=== PATIENT | female | born 1970 | race Caucasian/White ===

== ENCOUNTER 2020-03-27 14:56 | Outpatient (REF) | payer MEDICAID, SELFPAY ==
[2020-03-27 18:36] LABS: HCT 42.4 % (36.0-46.0); HGB 13.9 g/dL (11.2-15.7); MCH 29.4 pg (27.0-33.0); MCHC 32.8 % (32.0-36.0); MCV 89.8 fL (80-95); MPV 10.5 fL (8.0-11.0); Platelet Count 313 10^3/uL (130-400); RBC 4.72 10^6/uL (3.93-5.22); RDW 12.3 % (11.7-14.6); RDW-SD 40.7 fL; WBC 8.05 10^3/uL (4.4-10.8)
[2020-03-27 19:39] LABS: Hemoglobin A1C 5.4 % (<5.7)
[2020-03-27 19:42] LABS: ALT 28 U/L (14-59); AST 23 U/L (15-37); Albumin 4.1 g/dL (3.4-5.0); Alkaline Phosphatase 82 U/L (46-116); BUN 21 mg/dL (7-18); Bilirubin, Total 0.6 mg/dL (0.2-1.0); CREATININE 1.11 mg/dL (0.55-1.02); Calcium 9.1 mg/dL (8.5-10.1); Calculated LDL 108 mg/dL (<100); Chloride 105 mmol/L (98-107); Cholesterol 211 mg/dL (<200); Estimated GFR 52.03 (mL/min/1.73m2); Ferritin 82 ng/mL (8-252); Glucose 100 mg/dL (74-106); HDL Cholesterol 43 mg/dL (40-60); Potassium 3.8 mmol/L (3.5-5.1); Sodium 141 mmol/L (136-145); T4 8.5 ug/mL (4.7-13.3); Total Protein 7.1 g/dL (6.4-8.2); Triglyceride 302 mg/dL (<150)
[2020-03-27 20:15] LABS: C-Reactive Protein 0.18 mg/dL (0.0-0.3); FREE T4 1.03 ng/dL (0.76-1.46)
[2020-03-29 04:48] LABS: Vitamin D 25 Total 31.6 ng/ml (30-100)
[2020-03-30 09:40] LABS: CEA 1.5 ng/ml
[2020-03-30 09:42] LABS: HIV-1/2 Ag & Ab Screen Negative (Negative)
[2020-04-11 16:01] LABS: T3, Total 90 ng/dL (80 - 200); Testosterone, Total 12 ng/dL (8-60)
[2020-04-11 16:07] LABS: Hepatitis C Ab w Rflx HCV PCR Negative (Negative)
[2020-04-11 16:11] LABS: DHEA Sulfate 97 mcg/dL
[2020-04-11 16:12] LABS: Estradiol 47 pg/mL
[2020-04-11 16:13] LABS: Progesterone 0.29 ng/mL; T3,Free 2.9 pg/mL
== END 2020-03-27 15:16 ==
LOC: NCHCN 14:56
PROVIDERS: PCP Nurse Practitioner Family; Visit Provider Nurse Practitioner Family
DX: E61.1 Iron deficiency (principal); G25.81 Restless legs syndrome; R53.83 Other fatigue; R63.5 Abnormal weight gain; N95.1 Menopausal and female climacteric states; Z11.4 Encounter for screening for human immunodeficiency virus [HIV]; Z11.59 Encounter for screening for other viral diseases
CPT/HCPCS: 80053; 80061; 82306; 82627; 84402; 84403; 85027; 86803; 87389; 82378; 82670; 82728; 83036; 83735; 84144; 84436; 84439; 84443; 84480; 84481; 86140

== ENCOUNTER 2020-05-25 04:31 | Outpatient (CLI) | payer MEDICAID, SELFPAY ==
--- NOTE | 2020-05-25 | DI.MAMMO_ITS ---
EXAM: MG MAMMO SCREENING CLINICAL HISTORY: SCREENING,Z12.39. TECHNIQUE: Bilateral full field digital CC and MLO mammographic images were obtained with 3D tomosyn thesis and utilizing computer aided detection (CAD). COMPARISON: Prior mammograms dating back to 2010, the most recent being April 2017. FINDINGS: There are no CAD designations. Asymmetric density posteriorly in the right breast is unchanged from 2011 and therefore benign. Ther e are no new spiculated masses nor malignant-appearing microcalcifications in either breast There is no new architectural distortion or skin thickening-traction. IMPRESSION: No radiographic evidence of malignancy. BI-RADS Category 1 - Negative Breast Density - Category B - Scattered areas of fibroglandular density Breast density Category C or D implies that the patient has dense breast tissue. Dense breast tissue can make it harder to find cancer on a mammogram. Dense breast tissue is also associated with an incr eased risk of breast cancer. This information about the result of the mammogram report was provided to the patient to raise their awareness. Use this report when you speak with the patient about their risks for breast cancer, which includes their family history. At that time, you may recommend additional screening tests (Ultrasoun d or MRI) as these tests may add significant information. A negative radiographic report should not delay biopsy if a dominant or clinically suspicious mass is present. Up to ten percent of cancers are not identified on mammography. A negative report may reinforce clinical impression. Adenosis and dense breasts may obscure an underlying neoplasm. False positive reports average 6 to 10%. Patient will receive a letter notifying them of these results.
== END 2020-05-25 04:51 ==
PROVIDERS: PCP Nurse Practitioner Family; Visit Provider Nurse Practitioner Family
DX: Z12.31 Encounter for screening mammogram for malignant neoplasm of breast (principal); N64.89 Other specified disorders of breast
CPT/HCPCS: 77063; 77067

== ENCOUNTER 2020-06-18 21:37 | Day surgery (SDC) | payer MEDICAID, SELFPAY | END 2020-06-18 21:38 | disposition home or self-care (01) | LOC: SUR 21:39 | PROVIDERS: PCP Nurse Practitioner Family; Visit Provider Surgery | DX: Z53.9 Procedure and treatment not carried out, unspecified reason (principal) ==

== ENCOUNTER 2021-08-02 14:44 | Outpatient (REF) | payer MEDICAID, SELFPAY ==
[2021-08-02 19:46] LABS: HCT 42.8 % (36.0-46.0); HGB 13.7 g/dL (11.2-15.7); MCH 29.3 pg (27.0-33.0); MCV 91.6 fL (80-95); MPV 10.3 fL (8.0-11.0); Platelet Count 322 10^3/uL (130-400); RBC 4.67 10^6/uL (3.93-5.22); RDW 12.7 % (11.7-14.6); RDW-SD 42.7 fL; WBC 8.31 10^3/uL (4.4-10.8)
[2021-08-02 20:06] LABS: Iron 113 ug/dL (50-170)
[2021-08-02 20:11] LABS: Hemoglobin A1C 5.5 % (<5.7)
[2021-08-02 20:17] LABS: ALT 27 U/L (14-59); AST 16 U/L (15-37); Alkaline Phosphatase 84 U/L (46-116); Anion Gap 11.3 mmol/L (3-11); BUN 22 mg/dL (7-18); Bilirubin, Total 0.7 mg/dL (0.2-1.0); CO2 24.7 mmol/L (21.0-32.0); CREATININE 0.9 mg/dL (0.55-1.02); Calcium 8.9 mg/dL (8.5-10.1); Calculated LDL 144 mg/dL (<100); Chloride 106 mmol/L (98-107); Cholesterol 234 mg/dL (<200); Glucose 91 mg/dL (74-106); HDL Cholesterol 54 mg/dL (40-60); Sodium 142 mmol/L (136-145); TSH 1.05 uIU/mL (0.36-3.74); Total Protein 6.8 g/dL (6.4-8.2); Triglyceride 182 mg/dL (<150)
[2021-08-02 20:39] LABS: C-Reactive Protein < 0.05 mg/dL (0.0-0.3); FREE T4 0.91 ng/dL (0.76-1.46)
[2021-08-02 21:12] LABS: ESR 8 mm/hr (0-30)
[2021-08-03 22:41] LABS: T3, Total 115 ng/dL (97-169)
[2021-08-03 23:44] LABS: Estradiol <12 pg/mL (See Note)
[2021-08-05 05:28] LABS: Vitamin D 25 Total 60.8 ng/mL (30-100)
[2021-08-05 09:57] LABS: FSH 61.7 mIU/mL (See Note); LH 27.4 mIU/mL (See Note)
[2021-08-05 10:06] LABS: Sex Hormone Binding Globulin 46.6 nmol/L (See Note)
[2021-08-05 10:11] LABS: Prolactin 6.3 ng/mL (See Table)
[2021-08-09 12:02] LABS: Testosterone, Total <7.0 ng/dL (8-60)
== END 2021-08-02 14:45 | disposition home or self-care (01) ==
LOC: NCHCN 14:44
PROVIDERS: PCP Nurse Practitioner Family; Visit Provider Nurse Practitioner Family
DX: N95.9 Unspecified menopausal and perimenopausal disorder (principal); R53.83 Other fatigue; E61.1 Iron deficiency; G25.81 Restless legs syndrome
CPT/HCPCS: 80053; 80061; 82306; 84402; 84403; 85027; 85652; 82670; 83001; 83002; 83036; 83540; 83735; 84146; 84270; 84439; 84443; 84480; 84481; 86140

== ENCOUNTER → 2021-09-02 02:36 | Outpatient (CLI) | payer MEDICAID, SELFPAY | PROVIDERS: PCP Nurse Practitioner Family; Visit Provider Nurse Practitioner Family ==

== ENCOUNTER 2021-09-13 22:51 | Outpatient (REF) | payer MEDICAID, SELFPAY ==
[2021-09-16 11:27] LABS: Thyroperoxidase Antibody 32 U/mL (<=60)
[2021-09-16 11:47] LABS: Insulin 5.2 uIU/mL (<29.0)
== END 2021-09-13 22:52 | disposition home or self-care (01) ==
LOC: NCHCN 22:51
PROVIDERS: PCP Nurse Practitioner Family; Visit Provider Nurse Practitioner Family
DX: R53.83 Other fatigue (principal); E66.8 Other obesity; Z68.37 Body mass index [BMI] 37.0-37.9, adult; N95.1 Menopausal and female climacteric states
CPT/HCPCS: 82533; 83525; 86376

== ENCOUNTER → 2021-12-30 02:48 | Outpatient (CLI) | payer MEDICAID, SELFPAY ==
--- NOTE | 2021-12-30 08:45 | DI.MAMMO_ITS ---
Exam(s) MAMMO SCREENING EXAM: MAMMO SCREENING CLINICAL HISTORY: SCREENING, Z12.39 TECHNIQUE: Bilateral full field digital CC and MLO mammographic images were obtained with 3D tomosyn thesis and utilizing computer aided detection (CAD). COMPARISON: Available for comparison. FINDINGS: Masses/Architectural Distortion: None seen. Microcalcifications: There is a new cluster of microcalcifications in the upper-outer quadrant of the right breast. Spot magnification views are recommended for further evaluation. There are 2 small c alcifications which are new in the retroareolar region of the left breast. Spot magnification views may be obtained of this collection also. Skin Thickening/Nipple Retraction: None. IMPRESSION: 1. New clusters of calcifications seen in both breasts, right greater than left. 2. These area should be further evaluated with spot magnification views. BI-RADS Category 0 - Assessment Incomplete: Need additional imaging evaluation Breast Density - Category B - Scattered areas of fibroglandular density Breast density category C or D implies that the patient has dense breast tissue. Dense breast tissue is very common and is not abnormal but dense breast tissue can make it harder to find cancer on a ma mmogram. Also, dense breast tissue may increase their breast cancer risk. This information about the result of the mammogram report was provided to the patient to raise their awareness. Use this report when you speak with the patient about their risks for breast cancer, which includes their family hist ory. At that time, you may recommend for more screening tests (Ultrasound or MRI) as they might be us eful based on their risk. A negative radiographic report should not delay biopsy if a dominant or clinically suspicious mass is present. Up to ten percent of cancers are not identified on mammography. A negative report may reinforce clinical impression. Adenosis and dense breasts may obscure an underlying neoplasm. False positive reports average 6 to 10%. Patient will receive a letter notifying them of these results.
== END ==
PROVIDERS: PCP Nurse Practitioner Family; Visit Provider Nurse Practitioner Family
DX: Z12.31 Encounter for screening mammogram for malignant neoplasm of breast (principal); R92.8 Other abnormal and inconclusive findings on diagnostic imaging of breast
CPT/HCPCS: 77063; 77067

== ENCOUNTER → 2022-01-07 00:56 | Outpatient (CLI) | payer MEDICAID, SELFPAY ==
--- NOTE | 2022-01-07 | DI.US_ITS ---
Exam(s) US BREAST RT LIMITED US BREAST LT LIMITED MG MAMMO SCREEN CALL BACK BI EXAM: MG MAMMO SCREEN CALL BACK BI CLINICAL HISTORY: F/U ABNL MAMMO, NEW CLUSTERS OF CALCIFICATIONS BILAT BREASTS TECHNIQUE: Mammograms were interpreted according to the usual protocol including computer analysis w ith CAD system, tomosynthesis and C-view imaging. COMPARISON: FINDINGS: Additional mammographic views of right and left breast are interpreted in conjunction with right and left breast ultrasound. On the left, a group of 3 microcalcifications was noted in retroareolar portion of the breast recent mammogram. Magnification spot views show these microcalcifications to be rounded. Breast ultrasound showed no evidence of a mass in this area. Follow-up mammogram of the left breast recommended in 6 months. On the right there is a group of microcalcifications in the 9 o'clock position in the breast, these n umber at least 13 and there are predominantly rounded forms but some punctate and elongated forms are present. The microcalcifications were not present on last year's examination. Breast ultrasound of the right breast shows no mass or cyst. Biopsy recommended for this group of microcalcifications. IMPRESSION: Biopsy recommended for microcalcifications of the right breast which are new. No mass is identified on ultrasound, accordingly, stereotactic procedure is recommended. Mammography of left breast microcalcifications recommended in 6 months. BI-RADS Category 4 - Suspicious Abnormality: Biopsy should be considered Breast Density - Category B - Scattered areas of fibroglandular density
== END ==
PROVIDERS: PCP Nurse Practitioner Family; Visit Provider Nurse Practitioner Family
DX: Z12.31 Encounter for screening mammogram for malignant neoplasm of breast (principal); R92.8 Other abnormal and inconclusive findings on diagnostic imaging of breast; R92.0 Mammographic microcalcification found on diagnostic imaging of breast
CPT/HCPCS: 76642; 77063; 77067

== ENCOUNTER 2023-03-16 13:02 | Outpatient (REF) | payer MEDICAID, SELFPAY ==
[2023-03-16 15:32] LABS: HCT 41.9 % (36.0-46.0); HGB 14.2 g/dL (11.2-15.7); MCH 29.8 pg (27.0-33.0); MCHC 33.9 % (32.0-36.0); MCV 88 fL (80-95); MPV 10.7 fL (8.0-11.0); Platelet Count 297 10^3/uL (130-400); RBC 4.77 10^6/uL (3.93-5.22); RDW 11.9 % (11.7-14.6); RDW-SD 38.6 fL; WBC 6.87 10^3/uL (4.4-10.8)
[2023-03-16 15:46] LABS: ESR 5 mm/hr (0-30)
[2023-03-16 16:06] LABS: ALT 29 U/L (14-59); AST 23 U/L (15-37); Albumin 4.3 g/dL (3.4-5.0); Alkaline Phosphatase 88 U/L (46-116); BUN 20 mg/dL (7-18); Bilirubin, Total 0.9 mg/dL (0.2-1.0); C-Reactive Protein 0.08 mg/dL (0.0-0.3); CREATININE 0.9 mg/dL (0.55-1.02); Chloride 103 mmol/L (98-107); Estimated GFR 76.44 (mL/min/1.73m2); FREE T4 0.99 ng/dL (0.76-1.46); Glucose 94 mg/dL (74-106); Potassium 4.2 mmol/L (3.5-5.1); Sodium 139 mmol/L (136-145); TSH 1.82 uIU/mL (0.36-3.74)
[2023-03-16 16:22] LABS: Hemoglobin A1C 5.4 % (<5.7)
[2023-03-16 16:24] LABS: Calculated LDL 160 mg/dL (<100); Cholesterol 224 mg/dL (<200); HDL Cholesterol 49 mg/dL (40-60); Triglyceride 79 mg/dL (<150)
[2023-03-16 16:45] LABS: Vitamin D 25 Total 87.3 ng/mL (30-100)
[2023-03-16 22:27] LABS: Estradiol 14 pg/mL (See Note)
[2023-03-16 22:37] LABS: T3,Free 4.3 pg/mL (2.8-5.3)
[2023-03-16 22:42] LABS: FSH 69.6 mIU/mL (See Note)
[2023-03-16 22:53] LABS: T3, Total 117 ng/dL (97-169); Thyroperoxidase Antibody <28 U/mL (<=60)
[2023-03-16 22:57] LABS: Prolactin 4.1 ng/mL (See Note)
[2023-03-16 23:04] LABS: Sex Hormone Binding Globulin 53.3 nmol/L (See Note)
[2023-03-18 12:00] LABS: Thyroxine Binding Globulin 18 mcg/mL (11-27)
[2023-03-19 10:14] LABS: Insulin 4.6 uIU/mL (<29.0)
[2023-03-19 11:24] LABS: T3 (Triiodothyronine) Reverse 17 ng/dL (10-24)
[2023-03-25 13:06] LABS: Testosterone, Free 0.22 ng/dL (<0.13-0.92); Testosterone, Total 12 ng/dL (8-60)
== END 2023-03-16 13:03 | disposition home or self-care (01) ==
LOC: NCHCN 13:02
PROVIDERS: PCP Nurse Practitioner Family; Visit Provider Nurse Practitioner Family
DX: R53.83 Other fatigue (principal); M79.672 Pain in left foot; Z00.00 Encounter for general adult medical examination without abnormal findings; Z68.37 Body mass index [BMI] 37.0-37.9, adult
CPT/HCPCS: 80053; 80061; 82306; 84402; 84403; 85027; 85652; 82670; 83001; 83002; 83036; 83525; 84146; 84270; 84439; 84442; 84443; 84480; 84481; 84482; 86140; 86376

== ENCOUNTER → 2023-07-22 01:12 | Outpatient (CLI) | payer MEDICAID, SELFPAY ==
--- NOTE | 2023-07-22 08:00 | DI.RAD_ITS ---
Exam(s) XR FOOT LT COMPLETE EXAM: XR FOOT LT COMPLETE CLINICAL HISTORY: left foot pain,M79.672. TECHNIQUE: 2D digital imaging was performed of the left foot. Three images were obtained. AP, obli que and lateral views were obtained. COMPARISON: No exams were available for comparison FINDINGS: BONES: No acute fracture is present. No bony destructive lesion is seen. There is a small plantar reema caneal spur. There is an enthesophyte at the posterior calcaneus. JOINTS: No dislocation present. There is mild spurring at the talonavicular joint. The joint spaces are otherwise well maintained. SOFT TISSUE: Normal. IMPRESSION: Mild degenerative changes of the foot. Calcaneal spurs. DATA REPOSITORY: RADIATION DOSE DELIVERED:
--- NOTE | 2023-07-22 08:00 | DI.RAD_ITS ---
Exam(s) XR FOOT RT COMPLETE EXAM: XR FOOT RT COMPLETE CLINICAL HISTORY: right foot pain,M79.671. TECHNIQUE: 2D digital imaging was performed of the right foot. Three images were obtained. AP, obl ique and lateral views were obtained. COMPARISON: No exams were available for comparison FINDINGS: BONES: No acute fracture is present. No bony destructive lesion is seen. There is a moderate size stiven ntar calcaneal spur. There is a small enthesophyte at the posterior calcaneus. JOINTS: No dislocation present. There is spurring of the talonavicular joint. SOFT TISSUE: Normal. IMPRESSION: Mild degenerative changes of the right foot. DATA REPOSITORY: RADIATION DOSE DELIVERED:
== END ==
PROVIDERS: PCP Nurse Practitioner Family; Visit Provider Podiatrist
DX: M79.671 Pain in right foot (principal); M79.672 Pain in left foot
CPT/HCPCS: 73630

== ENCOUNTER 2023-09-30 13:50 | Outpatient (REF) | payer MEDICAID, SELFPAY ==
--- NOTE | 2023-09-30 11:30 | PAPFT_PTH ---
PATIENT: Mayra Handley LOC: [facility]#:[id number] AGE/SX: 52/F ROOM: RE09/30/[address]: IRIS FISHER : 1970 BED: DIS: 09/30/2023 SPEC #: [id number] RECD: 09/30/23 17:54 STATUS: DOMINICK REQ #: [id number] NINO: 09/30/23 11:[address]: rIis Fisher DEPT: [facility] Cytology RECD BY: Jaclyn Olivier ENTERED: 09/30/23 17:55 SP TYPE: PAPFT OTHR DR: Ashley Gamez Tissues: 1 - CX/ENDOCX FOR PAP SMEARS Procedures: PAP THIN PREP/[facility] Screening HPV DNA PROBE Comments: [id number]
[2023-09-30 15:54] LABS: HCT 39.8 % (36.0-46.0); HGB 13.2 g/dL (11.2-15.7); MCH 29.9 pg (27.0-33.0); MCHC 33.2 % (32.0-36.0); MCV 90 fL (80-95); MPV 10.3 fL (8.0-11.0); Platelet Count 269 10^3/uL (130-400); RBC 4.41 10^6/uL (3.93-5.22); RDW-SD 39.7 fL; WBC 8.88 10^3/uL (4.4-10.8)
[2023-09-30 16:42] LABS: Hemoglobin A1C 5.6 % (<5.7)
[2023-09-30 16:52] LABS: ALT 31 U/L (14-59); AST 20 U/L (15-37); Albumin 3.8 g/dL (3.4-5.0); Alkaline Phosphatase 75 U/L (46-116); Anion Gap 7.5 mmol/L (3-11); BUN 37 mg/dL (7-18); Bilirubin, Total 0.8 mg/dL (0.2-1.0); CO2 26.5 mmol/L (21.0-32.0); CREATININE 0.8 mg/dL (0.55-1.02); Calcium 8.7 mg/dL (8.5-10.1); Calculated LDL 119 mg/dL (<100); Chloride 105 mmol/L (98-107); Cholesterol 202 mg/dL (<200); Estimated GFR 88.05 (mL/min/1.73m2); Glucose 97 mg/dL (74-106); HDL Cholesterol 46 mg/dL (40-60); Potassium 4.1 mmol/L (3.5-5.1); Sodium 139 mmol/L (136-145); TSH (W/Ref FT4) 1.51 uIU/mL (0.36-3.74); Total Protein 6.5 g/dL (6.4-8.2); Triglyceride 188 mg/dL (<150)
== END 2023-09-30 13:51 | disposition home or self-care (01) ==
LOC: NCHCN 13:50
PROVIDERS: PCP Nurse Practitioner Family; Visit Provider Nurse Practitioner Family
DX: Z12.4 Encounter for screening for malignant neoplasm of cervix (principal); Z13.1 Encounter for screening for diabetes mellitus; E78.5 Hyperlipidemia, unspecified; R53.83 Other fatigue
CPT/HCPCS: 80053; 80061; 85027; 88142; 83036; 84443; 87624

== ENCOUNTER → 2023-10-12 02:18 | Outpatient (CLI) | payer MEDICAID, SELFPAY ==
--- NOTE | 2023-10-12 | DI.RAD_ITS ---
Exam(s) XR HIP PELVIS ADULT BL EXAM: XR HIP PELVIS ADULT BL CLINICAL HISTORY: SHEILA HIP JOINT PAIN, M25.551, M25.552. TECHNIQUE: 2D digital imaging was performed of the pelvis and bilateral hips. Three images were obt ained. AP pelvis and lateral views of both hips were obtained. COMPARISON: CR ABD FLAT UPRIGHT PA CHEST from 12/30/2011 FINDINGS: BONES: No acute fracture is present. No bony destructive lesion is seen. JOINTS: No dislocation present. SOFT TISSUE: Normal. IMPRESSION: Unrmarkable radiographs of bilat hips. Unremarkable radiographs of the pelvis DATA REPOSITORY: RADIATION DOSE DELIVERED:
== END ==
PROVIDERS: PCP Nurse Practitioner Family; Visit Provider Nurse Practitioner Family
DX: M25.551 Pain in right hip (principal); M25.552 Pain in left hip
CPT/HCPCS: 73521

== ENCOUNTER → 2023-10-19 02:44 | Outpatient (CLI) | payer MEDICAID, SELFPAY ==
--- NOTE | 2023-10-19 | DI.MAMMO_ITS ---
Exam(s) MAMMO SCREENING EXAM: MAMMO SCREENING CLINICAL HISTORY: Z12.31 Screening TECHNIQUE: Bilateral full field digital CC and MLO mammographic images were obtained with 3D tomosyn thesis and utilizing computer aided detection (CAD). COMPARISON: Available for comparison. FINDINGS: Masses/Architectural Distortion: The patient has had a biopsy in the upper outer quadrant of the righ t breast. No suspicious or new masses are seen. No areas of architectural distortion are present. Microcalcifications: No suspicious pleomorphic-type are seen. Skin Thickening/Nipple Retraction: None. IMPRESSION: 1. No significant interval change with no specific features of malignancy noted. 2. Unless there is more urgent need, screening mammography is recommended, as per [employer] guidelines. BI-RADS Category 1 - Negative Breast Density - Category B - Scattered areas of fibroglandular density Breast density category C or D implies that the patient has dense breast tissue. Dense breast tissue is very common and is not abnormal but dense breast tissue can make it harder to find cancer on a ma mmogram. Also, dense breast tissue may increase their breast cancer risk. This information about the result of the mammogram report was provided to the patient to raise their awareness. Use this report when you speak with the patient about their risks for breast cancer, which includes their family hist ory. At that time, you may recommend for more screening tests (Ultrasound or MRI) as they might be us eful based on their risk. A negative radiographic report should not delay biopsy if a dominant or clinically suspicious mass is present. Up to ten percent of cancers are not identified on mammography. A negative report may reinforce clinical impression. Adenosis and dense breasts may obscure an underlying neoplasm. False positive reports average 6 to 10%. Patient will receive a letter notifying them of these results.
== END ==
PROVIDERS: PCP Nurse Practitioner Family; Visit Provider Nurse Practitioner Family
DX: Z12.31 Encounter for screening mammogram for malignant neoplasm of breast (principal)
CPT/HCPCS: 77063; 77067

== ENCOUNTER 2024-07-04 13:30 | Outpatient (REF) | payer MEDICAID, SELFPAY ==
[2024-07-04 15:42] LABS: HCT 41.7 % (36.0-46.0); HGB 13.7 g/dL (11.2-15.7); MCH 29.5 pg (27.0-33.0); MCHC 32.9 % (32.0-36.0); MCV 90 fL (80-95); MPV 10.1 fL (8.0-11.0); Platelet Count 294 10^3/uL (130-400); RBC 4.64 10^6/uL (3.93-5.22); RDW 11.9 % (11.7-14.6); RDW-SD 39.3 fL; WBC 8.19 10^3/uL (4.4-10.8)
[2024-07-04 16:03] LABS: Iron 88 ug/dL (50-170); Total Iron Binding Capacity 322 ug/dL (250-450); Transferrin Sat 27 % (15-50)
[2024-07-04 16:20] LABS: ALT 27 U/L (14-59); AST 22 U/L (15-37); Albumin 4.1 g/dL (3.4-5.0); Alkaline Phosphatase 90 U/L (46-116); Anion Gap 5.5 mmol/L (3-11); BUN 16 mg/dL (7-18); Bilirubin, Total 0.77 mg/dL (0.2-1.0); CO2 29.5 mmol/L (21.0-32.0); CREATININE 0.9 mg/dL (0.55-1.02); Calcium 9.9 mg/dL (8.5-10.1); Chloride 107 mmol/L (98-107); Estimated GFR 75.97 (mL/min/1.73m2); Ferritin 92 ng/mL (8-252); Glucose 96 mg/dL (74-106); Magnesium 2.1 mg/dL (1.8-2.4); Potassium 4.4 mmol/L (3.5-5.1); Sodium 142 mmol/L (136-145); TSH (W/Ref FT4) 1.52 uIU/mL (0.36-3.74); Total Protein 6.8 g/dL (6.4-8.2); Vitamin D 25 Total 82.6 ng/mL (30-100)
[2024-07-04 21:00] LABS: Hemoglobin A1C 5.6 % (<5.7)
[2024-07-04 23:09] LABS: FSH 58.1 mIU/mL (See Note); Prolactin 4.9 ng/mL (See Note)
[2024-07-07 12:34] LABS: Estrone 22 pg/mL
[2024-07-12 14:27] LABS: Testosterone, Free 0.28 ng/dL (<0.13-0.92); Testosterone, Total 14 ng/dL (8-60)
== END 2024-07-04 13:31 | disposition home or self-care (01) ==
LOC: NCHCN 13:30
PROVIDERS: Visit Provider Nurse Practitioner Family
DX: R73.03 Prediabetes (principal); R25.2 Cramp and spasm; N91.2 Amenorrhea, unspecified; R53.83 Other fatigue
CPT/HCPCS: 80053; 82306; 84402; 84403; 85027; 82679; 82728; 83001; 83036; 83540; 83550; 83735; 84146; 84443

== ENCOUNTER 2024-10-19 01:45 | Outpatient (CLI) | payer MEDICAID, SELFPAY ==
--- NOTE | 2024-10-19 | DI.MAMMO_ITS ---
Exam(s) MAMMO SCREENING EXAM: MAMMO SCREENING CLINICAL HISTORY: Z12.31 Screening TECHNIQUE: Bilateral full field digital CC and MLO mammographic images were obtained with 3D tomosyn thesis and utilizing computer aided detection (CAD). COMPARISON: Comparison is made with prior examinations. FINDINGS: Masses/Architectural Distortion: No suspicious masses or areas of architectural distortion are presen t. Microcalcifications: No suspicious pleomorphic-type are seen. Skin Thickening/Nipple Retraction: None. IMPRESSION: 1. No significant interval change with no specific features of malignancy noted. 2. Unless there is more urgent need, screening mammography is recommended, as per [employer] guidelines. BI-RADS Category 1 - Negative Breast Density - Category B - There are scattered areas of fibroglandular density. Breast density Category C or D implies that the patient has dense breast tissue. Dense breast tissue can make it harder to find cancer on a mammogram. Dense breast tissue is also associated with an incr eased risk of breast cancer. This information about the result of the mammogram report was provided to the patient to raise their awareness. Use this report when you speak with the patient about their risks for breast cancer, which includes their family history. At that time, you may recommend additional screening tests (Ultrasoun d or MRI) as these tests may add significant information. A negative radiographic report should not delay biopsy if a dominant or clinically suspicious mass is present. Up to ten percent of cancers are not identified on mammography. A negative report may reinforce clinical impression. Adenosis and dense breasts may obscure an underlying neoplasm. False positive reports average 6 to 10%. Patient will receive a letter notifying them of these results.
== END 2024-10-19 02:05 ==
LOC: DI 01:45
PROVIDERS: PCP Nurse Practitioner Family; Visit Provider Nurse Practitioner Family
DX: Z12.31 Encounter for screening mammogram for malignant neoplasm of breast (principal); R92.323 Mammographic fibroglandular density, bilateral breasts
CPT/HCPCS: 77063; 77067

== ENCOUNTER 2025-04-28 16:23 | Outpatient (REF) | payer MEDICAID, SELFPAY ==
[2025-04-28 17:33] LABS: Cholesterol 218 mg/dL (<200); HDL Cholesterol 52 mg/dL (>or=50); Hemoglobin A1C 5.1 % (<5.7)
== END 2025-04-28 16:24 | disposition home or self-care (01) ==
LOC: NCHCN 16:23
PROVIDERS: PCP Nurse Practitioner Family
DX: Z13.220 Encounter for screening for lipoid disorders (principal); Z13.1 Encounter for screening for diabetes mellitus
CPT/HCPCS: 80061; 83036